=== PATIENT | male | born 1950 | race Caucasian/White ===

== ENCOUNTER 2019-04-18 17:12 | Inpatient (IN) | payer MEDICARE ==
[~2019-04-18] VITALS: Ht 157.5 cm; Wt 58.5 kg
[2019-04-18 17:41] LABS: BASOPHILS % (AUTO) 0.3 % (0.0-2.0); EOSINOPHILS # (AUTO) 0.2 K/uL (0.0-0.7); HEMATOCRIT 40.3 % (36.7-47.1); HEMOGLOBIN 13.5 g/dL (12.5-16.3); LYMPHOCYTES # (AUTO) 4.5 K/uL (20.0-40.0); MEAN CORPUSCULAR HEMOGLOBIN 32.1 uug (23.8-33.4); MEAN CORPUSCULAR HGB CONC 34 g/dL (32.5-36.3); MEAN CORPUSCULAR VOLUME 95.6 fL (73.0-96.2); MONOCYTES # (AUTO) 0.5 K/uL (2.0-10.0); MONOCYTES % (AUTO) 6.3 % (0.0-11.0); NEUTROPHILS # (AUTO) 3.4 K/uL (1.8-8.9); NEUTROPHILS % (AUTO) 39.4 % (38.5-71.5); PLATELET COUNT (AUTO) 310 K/uL (152-348); RED BLOOD CELL COUNT(AUTO) 4.21 MIL/uL (4.06-5.63); WHITE BLOOD COUNT (AUTO) 8.7 K/uL (3.6-10.2)
[2019-04-18 17:55] LABS: CARBON DIOXIDE 27 mmol/L (21-32); CHLORIDE 104 mmol/L (98-107); CREATININE 1.5 mg/dL (0.6-1.3); GLUCOSE 107 mg/dL (74-106); POTASSIUM 4.6 mmol/L (3.5-5.1); UREA NITROGEN, BLOOD 24 mg/dL (7-18)
[2019-04-18 17:58] LABS: ETHANOL < 3 MG/DL (0-0)
--- NOTE | 2019-04-18 17:59 | NUR ---
Pt resting in gurney and watching TV at this time, NAD noted.
[2019-04-18 18:06] LABS: ACETAMINOPHEN < 2.0 ug/mL (10-30); ALANINE AMINOTRANSFERASE 30 U/L (16-63); ALKALINE PHOSPHATASE 47 U/L (50-136); ASPARTATE AMINOTRANSFERASE 18 U/L (15-37); BILIRUBIN,DIRECT 0.1 mg/dL (0.0-0.2); BILIRUBIN,TOTAL 0.2 mg/dL (0.2-1.0); TOTAL PROTEIN, SERUM 8.1 g/dL (6.4-8.2)
[2019-04-18 18:15] LABS: *BILIRUBIN,URIN NEGATIVE (NEGATIVE); *BLOOD, URINE 3+ (NEGATIVE); *CLARITY,URINE SLIGHTLY CLOUDY (CLEAR); *COLOR,URINE YELLOW (YELLOW); *KETONES,URINE NEGATIVE (NEGATIVE); *UROBILINOGEN,URINE 0.2 E.U./dl (NORMAL); LEUKOCYTE ESTERASE ,URINE 2+ (NEGATIVE); NITRITE, URINE NEGATIVE (NEGATIVE); PH,URINE 6.5 (5.0-8.0); UGLUCOSE NEGATIVE (NEGATIVE)
[2019-04-18] MEDS ORDERED: TAMS-3 PO (18:18)
[2019-04-18] MEDS ORDERED: ZOLP5TAB2 PO (18:18)
[2019-04-18] MEDS ORDERED: BISA-79 PO (18:18)
[2019-04-18] MEDS ORDERED: ALPR0.255 PO (18:18)
[2019-04-18] MEDS ORDERED: ACET-73 PO (18:18)
[2019-04-18] MEDS ORDERED: AMLO5TAB4 PO (18:18)
[2019-04-18 18:27] LABS: *AMPHETAMINE, URINE NEGATIVE (NEGATIVE); *BARBITURATE, URINE NEGATIVE (NEGATIVE); *CANNABINOID, URINE NEGATIVE (NEGATIVE); *COCCAINE, URINE NEGATIVE (NEGATIVE); *OPIATE, URINE NEGATIVE (NEGATIVE); *PHENCYCLIDINE SCREEN,URINE NEGATIVE (NEGATIVE)
--- NOTE | 2019-04-18 18:27 | NUR ---
Per pt is medically clear and may be transfered to MHU. No MHU beds available at this time, pt remains cooperative, resting in gurney in room 1a and watching TV.
[2019-04-18 18:32] LABS: RBC,URINE 80-100 /HPF (0-3)
[2019-04-18 18:33] LABS: BACTERIA,URINE FEW /HPF (NONE SEEN); SQUAMOUS EPITHELIAL CELL,UR MODERATE /HPF (NONE SEEN)
--- NOTE | 2019-04-18 19:17 | NUR ---
ASSUMED CARE OF PATIENT. NO ACUTE DISTRESS NOTED. VSS
--- NOTE | 2019-04-18 19:39 | NUR ---
Spoke to MHU, there is no room ready at this time. They need to move another patient out of the department prior to being able to accept this patient.
--- NOTE | 2019-04-18 19:42 | NUR ---
Patient in bed, no acute distress noted. VSS
[2019-04-18] MEDS ORDERED: DEXTROSE 50% 50 ML DISP.SYRIN IV PRN (20:30)
[2019-04-18] MEDS ORDERED: ALPRAZOLAM 0.25 MG TABLET PO SCH (20:30)
[2019-04-18] MEDS ORDERED: ACETAMINOPHEN ES 500 MG TABLET PO SCH (20:30)
[2019-04-18] MEDS ORDERED: INSULIN REGULAR, HUMAN 300 UNIT/3 ML VIAL SQ PRN (20:30)
--- NOTE | 2019-04-18 20:53 | NUR ---
Report given to MHU RN. Pt. admitted to MHU , under care of Dr Dos Santos/Sandra Belongs List completed
[2019-04-18] MEDS ORDERED: ACETAMINOPHEN ES 500 MG TABLET PO PRN (20:57)
--- NOTE | 2019-04-18 21:20 | NUR ---
Admission note. Received patient from the ED, awake and alert, VS stable. Patient is hyperverbal and has poor situational awareness. Patient is re directable however. Admit done , shower given. Oriented patient to unit and plan of care, Patient verbalized understanding. Patient is mentally delayed and frequent rounding will be done to keep patient safe and free from injury. No acute distress noted at this time.
[2019-04-18] MEDS: BLOOD SUGAR DIAGNOSTIC 1 EACH STRIP VI SCH (21:44)
[2019-04-18] MEDS ORDERED: ACETAMINOPHEN 325 MG TABLET PO PRN (21:45)
[2019-04-18] MEDS ORDERED: MAGNESIUM HYDROXIDE 30 ML LIQUID UDC PO PRN (21:45)
[2019-04-18] MEDS ORDERED: TEMAZEPAM 7.5 MG CAPSULE PO PRN (21:45)
[2019-04-18 22:00] VITALS: BP 128/80
[2019-04-18 22:33] VITALS: BP 128/80
[2019-04-19] MEDS: BLOOD SUGAR DIAGNOSTIC 1 EACH STRIP VI SCH ×4 (06:35→21:30)
--- NOTE | 2019-04-19 06:54 | NUR ---
EPIC contacted regarding (+) UTI, road roller operator told this ad writer to call back in 6 minutes. Will endorse to day shift RN.
[2019-04-19 07:30] VITALS: BP 127/73
[2019-04-19] MEDS: TAMSULOSIN HCL 0.4 MG CAP.SR.24H PO SCH (08:13)
[2019-04-19] MEDS: BISACODYL 5 MG TABLET.DR PO SCH (08:13)
[2019-04-19] MEDS: CLONAZEPAM 0.5 MG TABLET PO PRN ×2 (08:36→14:55)
[2019-04-19] MEDS: AMLODIPINE 5 MG TABLET PO SCH (08:41)
[2019-04-19] MEDS ORDERED: CEphaleXIN 250 MG CAPSULE PO SCH (14:00)
[2019-04-19] MEDS ORDERED: CEPHALEXIN MONOHYDRATE 125 MG/5 ML SUSPENSION 100ML NG SCH (14:00)
--- NOTE | 2019-04-19 15:00 | NUR ---
called pharmacy for radha to deliver.
[2019-04-19 16:00] VITALS: BP 136/65
[2019-04-19] MEDS: CEphaleXIN 250 MG CAPSULE PO SCH ×2 (16:00→22:46)
[2019-04-19] MEDS: DIVALPROEX SPRINKLE 125 MG CAP.SPRINK PO SCH (16:21)
[2019-04-19] MEDS: HALOPERIDOL LACTATE 10 MG/5 ML ORAL SOLUTION UDC PO SCH (16:21)
--- NOTE | 2019-04-19 17:56 | NUR ---
KEFLEX ADMINISTERED TO PATIENT AT 1552 DUE TO LATE ARRIVAL OF MEDICATION TO THE UNIT, ADMINISTRATION TIME CHAGNED, HOWEVER KEFLEX IS ADMINISTERED ONCE
--- NOTE | 2019-04-19 18:38 | NUR ---
NO ACUTE DISTRESS NOTED STARTED ON KEFLEX AND PSYCHOTROPIC MEDICATIONS ODERED, COMPLIANT WITH MEDS AND TREATMENT PLAN, PATIENT TOOK SHOWER, CONTINUE TO MONITOR, NOTED WITH PARANOID THOUGHTS, REASSURED AND ORIENTED.
[2019-04-19 20:11] VITALS: BP 101/59
[2019-04-20] MEDS: CEphaleXIN 250 MG CAPSULE PO SCH ×3 (06:28→21:05)
[2019-04-20] MEDS: BLOOD SUGAR DIAGNOSTIC 1 EACH STRIP VI SCH ×4 (06:52→20:33)
[2019-04-20 07:30] VITALS: BP 117/71
[2019-04-20] MEDS: DIVALPROEX SPRINKLE 125 MG CAP.SPRINK PO SCH ×3 (08:50→16:37)
[2019-04-20] MEDS: AMLODIPINE 5 MG TABLET PO SCH (08:51)
[2019-04-20] MEDS: TAMSULOSIN HCL 0.4 MG CAP.SR.24H PO SCH (08:51)
[2019-04-20] MEDS: HALOPERIDOL LACTATE 10 MG/5 ML ORAL SOLUTION UDC PO SCH ×2 (08:55→16:38)
[2019-04-20] MEDS: BISACODYL 5 MG TABLET.DR PO SCH (09:00)
[2019-04-20 16:00] VITALS: BP 123/72
--- NOTE | 2019-04-20 17:54 | NUR ---
Pt received this morning resting in bed, assessed, AOx2, compliant with routine medication administration, reporting episodes of diarrhea, stool softener held due to symptoms. Pt able to CFS, denies pain and SI/HI at this time. Pt redirected when becoming anxious discussing previous living situation. Pt showered. All safety and comfort precautions implemented. Will continue to monitor and endorse to oncoming nurse.
[2019-04-20 19:48] VITALS: BP 108/62
[2019-04-21] MEDS: CEphaleXIN 250 MG CAPSULE PO SCH ×3 (05:56→21:07)
[2019-04-21] MEDS: BLOOD SUGAR DIAGNOSTIC 1 EACH STRIP VI SCH (07:04)
[2019-04-21 08:00] VITALS: BP 108/86
[2019-04-21] MEDS: HALOPERIDOL LACTATE 10 MG/5 ML ORAL SOLUTION UDC PO SCH ×2 (08:21→17:09)
[2019-04-21] MEDS: BISACODYL 5 MG TABLET.DR PO SCH (08:21)
[2019-04-21] MEDS: AMLODIPINE 5 MG TABLET PO SCH (08:21)
[2019-04-21] MEDS: DIVALPROEX SPRINKLE 125 MG CAP.SPRINK PO SCH ×3 (08:21→17:09)
[2019-04-21] MEDS: TAMSULOSIN HCL 0.4 MG CAP.SR.24H PO SCH (08:21)
[2019-04-21] MEDS: MAG HYDROX/AL HYDROX/SIMETH 30 ML LIQUID UDC PO PRN (11:36)
--- NOTE | 2019-04-21 16:11 | NUR ---
Group Note: Pt attended group therapy session on 04/21/19 at 2:30pm discussing support systems but was not engaged and did not participate due to his cognitive impairment.
[2019-04-21 16:22] VITALS: BP 111/70
--- NOTE | 2019-04-21 17:01 | NUR ---
Initial Discharge Planning: Patient is currently living at [facility] [[address] , [place], [place]; ]. Prior to that, patient lived with his niece Mera Smith [[phone]]. Per patient, he would like to go back to "detention" and is adamant about refusing to live with his niece again. Per diabetes education coordinator at [facility], patient will be able to return to facility. Per Mera, she does not want the patient to return to [facility]. Civil Engineering Specialist will continue to collaborate with pt, family, and MD regarding discharge plan for this patient. Civil Engineering Specialist will form a safe and proper discharge plan.
[2019-04-21 19:45] VITALS: BP 107/59
[2019-04-22] MEDS: CEphaleXIN 250 MG CAPSULE PO SCH ×2 (05:42→13:00)
--- NOTE | 2019-04-22 06:15 | NUR ---
GPS: Remain calm and cooperative with meds and care. shower this morning.continue on po atb for uti. encouraged po fluid intake. slept 7:5 hrs through the night. continue plan of care.
[2019-04-22 06:22] LABS: BASOPHILS % (AUTO) 0.3 % (0.0-2.0); EOSINOPHILS # (AUTO) 0.4 K/uL (0.0-0.7); HEMATOCRIT 38.6 % (36.7-47.1); LYMPHOCYTES # (AUTO) 3.9 K/uL (20.0-40.0); LYMPHOCYTES % (AUTO) 52.6 % (20.5-51.5); MEAN CORPUSCULAR HEMOGLOBIN 32.4 uug (23.8-33.4); MEAN CORPUSCULAR HGB CONC 34 g/dL (32.5-36.3); MONOCYTES # (AUTO) 0.5 K/uL (2.0-10.0); MONOCYTES % (AUTO) 6.2 % (0.0-11.0); NEUTROPHILS # (AUTO) 2.7 K/uL (1.8-8.9); NEUTROPHILS % (AUTO) 35.9 % (38.5-71.5); PLATELET COUNT (AUTO) 274 K/uL (152-348); RED BLOOD CELL COUNT(AUTO) 4.02 MIL/uL (4.06-5.63); WHITE BLOOD COUNT (AUTO) 7.4 K/uL (3.6-10.2)
[2019-04-22 06:37] LABS: CREATININE 1.3 mg/dL (0.6-1.3); MAGNESIUM 2.2 mg/dL (1.8-2.4); PHOSPHOROUS 3.5 mg/dL (2.5-4.9); POTASSIUM 4.6 mmol/L (3.5-5.1)
[2019-04-22] MEDS: TAMSULOSIN HCL 0.4 MG CAP.SR.24H PO SCH (08:23)
[2019-04-22] MEDS: HALOPERIDOL LACTATE 10 MG/5 ML ORAL SOLUTION UDC PO SCH ×2 (08:23→16:15)
[2019-04-22] MEDS: DIVALPROEX SPRINKLE 125 MG CAP.SPRINK PO SCH ×3 (08:23→16:14)
[2019-04-22] MEDS: AMLODIPINE 5 MG TABLET PO SCH (08:24)
[2019-04-22 08:25] VITALS: BP 116/62
[2019-04-22] MEDS: BISACODYL 5 MG TABLET.DR PO SCH (09:58)
[2019-04-22] MEDS: CLONAZEPAM 0.5 MG TABLET PO PRN (12:50)
[2019-04-22] MEDS: MAG HYDROX/AL HYDROX/SIMETH 30 ML LIQUID UDC PO PRN (12:50)
[2019-04-22 16:12] VITALS: BP 112/60
--- NOTE | 2019-04-22 18:21 | NUR ---
GPS: RECEIVED PATIENT ALET ORIENTED X1, PATIENT CALM COOPERATIVE HOWEVER EASILY IRRITABLE, PATIENT HAS TENDENCY TO REFUSE MEDICATION , EDUCATE PATIENT WITH THE BENEFITS OF THE MEDICATION PATIENT COMPLY WITH MEDICATION,DENIES SI AND HI, PATIENT STILL ASKING ABOUT GROUPHOME, WILL CONTINUE MONITOR
[2019-04-22 19:39] VITALS: BP 106/61
--- NOTE | 2019-04-23 06:01 | NUR ---
GPS: Remain calm and cooperative with meds and care. encouraged po fluid intake. slept 8:30 hrs through the night. resting in bed comfortably.continue plan of care.
[2019-04-23 07:30] VITALS: BP 113/61
[2019-04-23] MEDS: DIVALPROEX SPRINKLE 125 MG CAP.SPRINK PO SCH ×3 (08:45→16:56)
[2019-04-23] MEDS: HALOPERIDOL LACTATE 10 MG/5 ML ORAL SOLUTION UDC PO SCH ×2 (08:45→16:56)
[2019-04-23] MEDS: AMLODIPINE 5 MG TABLET PO SCH (08:46)
[2019-04-23] MEDS: TAMSULOSIN HCL 0.4 MG CAP.SR.24H PO SCH (08:47)
[2019-04-23 16:00] VITALS: BP 129/69
[2019-04-23 20:02] VITALS: BP 110/71
[2019-04-23] MEDS: MAG HYDROX/AL HYDROX/SIMETH 30 ML LIQUID UDC PO PRN (20:58)
--- NOTE | 2019-04-23 21:00 | NUR ---
PATIENT C/O UPSET STOMACH AFTER EATING VANILLA ICE CREAM. PATIENT GIVEN MYLANTA 30ML PO PRN FOR UPSET STOMACH. WILL CONTINUE TO MONITOR AND ASSESS.
[2019-04-23] MEDS: CLONAZEPAM 0.5 MG TABLET PO PRN (23:19)
--- NOTE | 2019-04-23 23:20 | NUR ---
PATIENT AWAKE IN BED. UNABLE TO RELAX. PATIENT GIVEN KLONOPIN 0.5MG PO PRN FOR ANXIETY. WILL CONTINUE TO MONITOR AND ASSESS.
[2019-04-24 07:30] VITALS: BP 91/54
[2019-04-24] MEDS: DIVALPROEX SPRINKLE 125 MG CAP.SPRINK PO SCH ×3 (08:31→16:58)
[2019-04-24] MEDS: HALOPERIDOL LACTATE 10 MG/5 ML ORAL SOLUTION UDC PO SCH ×2 (08:31→16:57)
[2019-04-24] MEDS: TAMSULOSIN HCL 0.4 MG CAP.SR.24H PO SCH (08:32)
[2019-04-24] MEDS: AMLODIPINE 5 MG TABLET PO SCH (08:32)
[2019-04-24 15:11] VITALS: BP 112/76
--- NOTE | 2019-04-24 15:56 | NUR ---
Social Work Note: Pharmacy Customer Care Specialist made attempts to contact patient's sarah Smith [phone] and left a message to coordinate discharge planning for patient.
[2019-04-24 20:12] VITALS: BP 102/51
[2019-04-25 07:30] VITALS: BP 124/67
[2019-04-25] MEDS: DIVALPROEX SPRINKLE 125 MG CAP.SPRINK PO SCH ×3 (08:13→17:06)
[2019-04-25] MEDS: HALOPERIDOL LACTATE 10 MG/5 ML ORAL SOLUTION UDC PO SCH ×2 (08:13→17:06)
[2019-04-25] MEDS: AMLODIPINE 5 MG TABLET PO SCH (08:14)
[2019-04-25] MEDS: TAMSULOSIN HCL 0.4 MG CAP.SR.24H PO SCH (08:14)
--- NOTE | 2019-04-25 14:14 | NUR ---
Social Work Note: Home Care Rn spoke with patient's niece - Mera Smith [[phone]]. Per Mera, she would like patient to be discharged to [facility] [[phone]] and continue care with Dr. Frost. Dr. Frost agreeable to accept patient. Home Care Rn to follow up with patient referral to [facility].
--- NOTE | 2019-04-25 14:51 | NUR ---
FIREARMS REPORT: Glycerine Plant Operator completed and submitted a [employer] firearms report for [address] Disability certification. A copy of report has been placed in patient chart.
[2019-04-25 15:30] VITALS: BP 127/66
[2019-04-25 19:41] VITALS: BP 107/66
--- NOTE | 2019-04-25 20:00 | NUR ---
RECEIVED PATIENT IN THE DAY ROOM WATCHING TV. HE IS NOTED A/O X 3, PLEASANT AND COOPERATIVE UPON APPROACHED. PATIENT ABLE TO AMBULATE WITH STEADY GAIT AND ABLE TO MAKE HIS NEEDS KNOWN. SAFETY AND FALL PRECAUTION IN PLACE. PT ABLE TO VERBALIZED FEELINGS. HE IS REASSURED FOR HIS SAFETY. WILL CONTINUE TO MONITOR.
[2019-04-26 07:50] VITALS: BP 123/76
[2019-04-26] MEDS: TAMSULOSIN HCL 0.4 MG CAP.SR.24H PO SCH (08:50)
[2019-04-26] MEDS: HALOPERIDOL LACTATE 10 MG/5 ML ORAL SOLUTION UDC PO SCH (08:50)
[2019-04-26 08:51] VITALS: BP 123/76
[2019-04-26] MEDS: DIVALPROEX SPRINKLE 125 MG CAP.SPRINK PO SCH ×2 (08:51→12:07)
[2019-04-26] MEDS: AMLODIPINE 5 MG TABLET PO SCH (08:51)
--- NOTE | 2019-04-26 09:57 | NUR ---
Discharge Note: Patient will be discharged to [facility] [[place] [address]; ]. Orthotic Finish Grinding Technician spoke with Logan, Dry Kiln Worker, who stated facility is ready to accept patient today. Please arrange ambulance for this patient by 1:00pm. Patient is aware and agreeable with discharge plan. Orthotic Finish Grinding Technician spoke with patient�s daughter � Mera Smith [[phone]]. Patient will follow up with Dr. Cornejo (Arborist) and Dr. Frost (Psychiatrist) at [facility]. Patient was given outpatient mental health resources to [facility] Crisis Line , Dilcia Weinstein , and the National Suicide Prevention Lifeline .
[2019-04-26] MEDS: CLONAZEPAM 0.5 MG TABLET PO PRN (12:07)
--- NOTE | 2019-04-26 13:45 | NUR ---
Pt received this morning, assessed, denies pain, no acute distress, showing good judgment and insight. Pt is excited due to it being his birthday and his anticipated D/C. Pt denies SI/HI and is able to CFS. Pt is compliant with medications and cooperative with care provided. Discharge order received. Pt will be discharged to [facility] [[place] [address]; ]. Report given to Taryn MCKAY stating he will have room 34A. Discharge plans and paperwork discussed with Pt, paperwork reviewed, signed and copies placed in chart. Pt belongings accounted for and list signed. Pt�s daughter notified by On Air Director of plan to transfer. Pt teaching provided regarding f/u with Dr. Cornejo (Business Line Manager) and Dr. Frost (Psychiatrist) assisted by [facility]. Pt was given outpatient mental health resources to [facility] Crisis Line , Dilcia Weinstein , and the National Suicide Prevention Lifeline . Skin integrity photos taken and placed in chart. All discharge needs attended to. Pt safely escorted out of unit on [address] with ell teacher. Will remove from system shortly.
== END 2019-04-26 13:30 | DRG 885 ==
LOC: ER 17:14 → GPS 20:46
PROVIDERS: ADMIT Psychiatry & Neurology Psychiatry; ATTEND Student in an Organized Health Care Education/Training Program
DX: F29 Unspecified psychosis not due to a substance or known physiological condition (principal); N18.9 Chronic kidney disease, unspecified; N17.9 Acute kidney failure, unspecified; F79 Unspecified intellectual disabilities; D68.59 Other primary thrombophilia; N39.0 Urinary tract infection, site not specified; N40.0 Benign prostatic hyperplasia without lower urinary tract symptoms; F41.9 Anxiety disorder, unspecified; E11.22 Type 2 diabetes mellitus with diabetic chronic kidney disease; I12.9 Hypertensive chronic kidney disease with stage 1 through stage 4 chronic kidney disease, or unspecified chronic kidney disease; F39 Unspecified mood [affective] disorder; I10 Essential (primary) hypertension; Z86.718 Personal history of other venous thrombosis and embolism; E86.1 Hypovolemia; Z79.899 Other long term (current) drug therapy
CPT/HCPCS: 36415; 80164; 80307; 83735; 84100; 84443; 85025; 87086; 93005; 97116; 97530; A4663; G0480; G0480-TC; J1815